=== PATIENT | male | born 1985 | race Two or more races ===

== ENCOUNTER 2018-08-08 08:23 | Emergency (ER) | payer OTHER ==
--- NOTE | 2018-08-08 08:51 | EDPHY ---
H & P Stated Complaint: R pointer finger lac-cut on knife accidentally Source: Patient Exam Limitations: No limitations - Personal History Current Tetanus/Diphtheria Vaccine: Yes Current Tetanus Diphtheria and Acellular Pertussis (TDAP): Yes Tetanus Vaccine Date: 2015 - Medical/Surgical History Hx Asthma: No Hx Chronic Respiratory Disease: No Hx Diabetes: No Hx Cardiac Disease: No Hx Renal Disease: No Hx Cirrhosis: No Hx Alcoholism: No Hx HIV/AIDS: No Hx Splenectomy or Spleen Trauma: No Other PMH: denies - Social History Smoking Status: Current every day smoker Time Seen by Provider: 08/08/18 08:34 HPI/ROS: CHIEF COMPLAINT: Finger laceration HISTORY OF PRESENT ILLNESS: Patient is a 32-year-old man who comes to the emergency department complaining of a laceration to his right finger. He cut it while trying to sharp and is knife. This happened just prior to arrival. He denies other injuries. Normal movement and sensation. It is of the distal fat pad the right index finger. Does not involve nail or nail bed or joint. Severity: Moderate Modifying factors: None REVIEW OF SYSTEMS: Constitutional: denies: chills, fever, recent illness, recent injury EENTM: denies: blurred vision, double vision, nose congestion Respiratory: denies: cough, shortness of breath Cardiac: denies: chest pain, irregular heart rate, lightheadedness, palpitations Gastrointestinal/Abdominal: denies: abdominal pain, diarrhea, nausea, vomiting, blood streaked stools Genitourinary: denies: dysuria, frequency, hematuria, pain Musculoskeletal: denies: joint pain, muscle pain Skin: See HPI Neurological: denies: headache, numbness, paresthesia, tingling, dizziness, weakness Hematologic/Lymphatic: denies: blood clots, easy bleeding, easy bruising Immunologic/allergic: denies: HIV/AIDS, transplant 10 systems reviewed and negative except as noted EXAM: GENERAL: Well-appearing, well-nourished and in no acute distress. HEAD: Atraumatic, normocephalic. EYES: Pupils equal round and reactive to light, extraocular movements intact, ENT: nares patent, oropharynx clear without exudates. Moist mucous membranes. NECK: Normal range of motion, supple without lymphadenopathy or JVD. LUNGS: Breath sounds clear HEART: Regular rate and rhythm ABDOMEN: Soft, nontender, normoactive bowel sounds. No guarding, no rebound. No masses appreciated. BACK: No CVA tenderness, no spinal tenderness, step-offs or deformities EXTREMITIES: See diagram NEUROLOGICAL: Cranial nerves II through XII grossly intact. Normal speech, normal gait. 5/5 strength, normal movement in all extremities, normal sensation , normal reflexes PSYCH: Normal mood, normal affect. SKIN: See HPI (Juliocesar Rea) Constitutional: Initial Vital Signs Temperature (C) 37.0 C 08/08/18 08:25 Heart Rate 78 08/08/18 08:25 Respiratory Rate 16 08/08/18 08:25 Blood Pressure 114/80 08/08/18 08:25 O2 Sat (%) 97 08/08/18 08:25 O2 Delivery Mode Room Air Allergies/Adverse Reactions: No Known Allergies Allergy (Unverified 08/08/18 08:25) Home Medications: Medication Instructions Recorded NK [No Known Home Meds] 08/08/18 ED Images - Extremities Hands Front Left/Right: 1 - 1.5 cm laceration. Does not involve joint or nail bed. Medical Decision Making Procedures: Procedure: Laceration repair. Verbal consent was obtained from the patient. The 3 cm, superficial c-shaped laceration on the right index finger was anesthetized in the usual fashion using 5 mL 1 % lidocaine without epinephrine. The wound was irrigated, draped and explored to its base with a gloved finger. There were no deep structures involved. No tendon injury was identified. The wound was repaired with #5, 5- 0 Prolene in simple interrupted pattern. Good Hemostasis was achieved and patient tolerated procedure well. Xeroform and clean sterile dressing applied The procedure was performed by myself. (Iveth Hernández) ED Course/Re-evaluation: Patient tolerated suture repair. Discussed follow-up and indications for removal. Discussed suture care and removal. (Juliocesar Rea) Differential Diagnosis: Partial list of the Differential diagnosis considered include but were not limited to; finger laceration and although unlikely based on the history and physical exam, I also considered nail bed injury, tendon injury, nerve injury, fracture. (Juliocesar Rea) Departure - Departure Disposition: Home, Routine, Self-Care Clinical Impression: Laceration of index finger of right hand without complication Condition: Good Instructions: Care For Your Stitches (ED), Finger Laceration (ED) Additional Instructions: Keep the dressing dry and in place for 48 hours./Mantenga el vendaje en bill lugar por las siguentes 48 horas. After 48 hours, you may remove the dressing; wash the site daily with mild soap and water; then pat dry./Despues de 48 horas remover el vendaje; alan el area diario con agua y sowmya, secar suavemente. Apply topical antibiotic ointment and keep covered with sterile dressing until fully healed./Aplicar unguento topical de antibiotico y mantener cubierto con gasa esteril hasta que sane bailey. Do not soak in a bathtub or go swimming until sutures are removed./No remoje en tinas o piscias hasta que le remuevan las suturas. Take Tylenol 650 mg every 4 hours and/or Ibuprofen 600 mg every 8 hours with food as needed for pain. / Mettler Tylenol 650 miligramos cada 4 horas y/o ibuprofeno cada 8 horas con comida seguen necesite para dolor. Wound Care Follow-Up: Removal of sutures in [ 10-14 ] days. Suture removal is complimentary in uncomplicated cases. Infection or abnormal findings would require reevaluation by the MD. In that case, you may be billed. Seguimiento de cuidado de herida: Remover las puntadas dentro de [ 10-14 ]. Las suturas se remueven sin un costo cuando no es un cassandra complicado. Si acaso se encuentra algo anormal es necesario inna reevaluacion por el medico. En edwin cassandra si recivira inna fractura. Work Related Injury: Date of Injury (if different from Date of Service): August 08, 2018 Your work restrictions, if any, last only until the next business day. Formal evaluation for work restrictions beyond one day must be arranged through your employer's workman's compensation provider. Restrictions are noted below: Return to work on your next scheduled shift. Herida relacionada con el trabajo: Fecha de amish (si acaso es diferente del hyacinth de servicio): Arcos 2018 Nikole restriccioens si acaso se dieron algunas son efectivas hasta el hyacinth siguente avil. Evaluacion formal de restricciones de trabajo tendran que ser entragadas por el proveedor de compensacion al trabajador. Restricciones seguientes: Puede regresar a bill siguiente turno de trabajo. Referrals: Josh Rizzo MD [Medical Doctor] - Follow Up Only If Needed Stand Alone Forms: Work Excuse Print Language: Syriac
[2018-08-21 10:19] VITALS: BP 122/67
== END 2018-08-08 09:34 | disposition home or self-care (01) ==
LOC: EDBD 08:23
PROC: 0HQFXZZ Repair Right Hand Skin, External Approach (ICD-10-PCS; principal; 2018-08-08)
DX: S61.210A Laceration without foreign body of right index finger without damage to nail, initial encounter (principal); W26.0XXA Contact with knife, initial encounter; Y93.89 Activity, other specified; Y99.0 Civilian activity done for income or pay